=== PATIENT | female | born 1975 | race African-American/Black ===

== ENCOUNTER 2023-07-15 12:32 | Emergency (ER) | payer SELFPAY ==
[~2023-07-15] VITALS: Ht 180.3 cm; Wt 142.4 kg
[2023-07-15 12:48] VITALS: BP_SYST 140; PULSE 69; RESP 16; TEMP 97.7; O2SAT 97
[2023-07-15] MEDS ORDERED: PHEDM120 PO (12:55)
[2023-07-15 12:59] VITALS: BP_SYST 136; PULSE 74; RESP 18; TEMP 97.1; O2SAT 98
[2023-07-15] MEDS ORDERED: PROM5SYR PO (13:27)
== END 2023-07-15 13:12 | disposition home or self-care (01) ==
LOC: SED 12:32
DX: Z76.0 Encounter for issue of repeat prescription (principal); J42 Unspecified chronic bronchitis; R05.9 Cough, unspecified; R09.81 Nasal congestion; R06.02 Shortness of breath; Z79.899 Other long term (current) drug therapy
CPT/HCPCS: 99283